=== PATIENT | female | born 1975 | race Caucasian/White ===

== ENCOUNTER 2024-04-22 11:00 | Emergency (ER) | payer OTHER, SELFPAY ==
[2024-04-22 11:23] VITALS: BP 136/96; PULSE 80; RESP 18; TEMP 36.3; O2SAT 100
--- NOTE | 2024-04-22 11:29 | ED.EXTPRO ---
HPI - Extremity Problem General Chief complaint: Extremity Problem,Nontraumatic Stated complaint: arm pain Source: patient Mode of arrival: ambulatory Limitations: no limitations History of Present Illness HPI Narrative: 48 y/o female presented for c/o right arm pain for one week. Pain started after rolling over in bed and using the arm to push herself up. Since then the pain has worsened. Rates pain 9/10. Pain is intermittent. Unable to describe any aggravating or alleviating factors. Says it will just start hurting and may be relieved in certain positions but not always. Endorses associated radiating pain to the hand with numbness or tingling. Denies weakness or decreased ROM. Takes naproxen and baclofen for chronic back pain, and has added tylenol without improvement. Related Data Home Medications Medication Instructions Recorded Confirmed baclofen 10 mg tablet 10 mg PO BID 04/22/24 04/22/24 etonogestrel 68 mg subdermal 1 implant subdermal ONCE 04/22/24 04/22/24 implant (Nexplanon) fluoxetine 20 mg capsule 20 mg PO DAILY 04/22/24 04/22/24 lisinopril 30 mg tablet 30 mg PO DAILY 04/22/24 04/22/24 naproxen 500 mg tablet 500 mg PO BID 04/22/24 04/22/24 omeprazole 40 mg capsule,delayed 40 mg PO DAILY 04/22/24 04/22/24 release tirzepatide 5 mg/0.5 mL 5 mg subcut WEEKLY 04/22/24 04/22/24 subcutaneous pen injector (Mounjaro) Allergies Allergy/AdvReac Type Severity Reaction Status Date / Time latex Allergy Mild RASH Verified 04/22/24 11:32 ERITHROMYCIN AdvReac Intermediate Nausea and Uncoded 04/22/24 11:32 Vomiting Review of Systems Review of Systems: CONSTITUTIONAL: Denies body aches, fever, chills CARDIOVASCULAR: Denies chest pain, palpitations, or edema. RESPIRATORY: Denies cough or dyspnea. SKIN: Denies rash, wounds. MUSCULOSKELETAL: Reports right arm pain NEUROLOGIC: Denies headache, or weakness. reports numbness, tingling All systems reviewed & are unremarkable except as noted in HPI and below PMFSH Past Medical History Medical History Diabetes HTN (hypertension) Comments At time of signature, I have reviewed and agree with nursing past medical, surgical, social and family history unless otherwise noted. Please see nursing chart for further information. There is no relevant family history pertinent to the presenting complaint Exam Narrative: GENERAL: Well-appearing CHEST: Speaks in full sentences. No respiratory distress. HEART: Regular rate and rhythm. Normal and equal peripheral pulses. EXTREMITIES: RUE has normal strength and sensation, normal range of motion at shoulder without pain without painful movement. Right posterior shoulder/deltoid tender with palpation. No swelling bruising or erythema. No open wounds, or obvious deformity; alignment normal, pulse palpable and equal bilaterally, skin warm, dry, pink. Capillary refill less than 3 seconds. SKIN: Warm, dry, no rash. NEURO: Alert and oriented x3. PSYCH: Normal mood and affect Course Course Emergency Course: Patient is aware of diagnosis, understands and agrees to treatment plan. Anticipatory guidance given. Patient agrees to follow-up as directed and is aware of reasons to seek care at the emergency department. Portions of this record may have been created with voice recognition software Level of Care: Express Care Visit Vital Signs Vital signs: Vital Signs Temperature 97.3 F L 04/22/24 11:23 Pulse Rate 80 04/22/24 11:23 Respiratory Rate 18 04/22/24 11:23 Blood Pressure 136/96 H 04/22/24 11:23 Pulse Oximetry 100 04/22/24 11:23 Oxygen Delivery Room Air 04/22/24 11:23 Temperature 97.3 F L 04/22/24 11:23 Pulse Rate 80 04/22/24 11:23 Respiratory Rate 18 04/22/24 11:23 Blood Pressure 136/96 H 04/22/24 11:23 Pulse Oximetry 100 04/22/24 11:23 Oxygen Delivery Room Air 04/22/24 11:23 Reviewed MDM - Extremity (Nontraumatic) MDM Narrative Medical decision making narrative: Discussed physical exam findings and reviewed Rx. Pt will not take baclofen while taking cyclobenzaprine. Declined imaging at this time, and plans to f/u with pcp for this. Advised supportive measures and signs/symptoms to go to the ER. Pt is appropriate for outpt treatment and f/u. Differential Diagnosis Differential diagnosis: Likely other (cervical strain, cervical radiculopathy, cervical spine fracture/dislocation/herniation Musculoskeletal injury, torticollis, cervical spondylosis, cervical stenosis, epidural abscess, osteomyelitis, disc herniation) Discharge Plan Discharge Clinical Impression: Pain in right arm Patient Disposition: Home, Self-Care Condition: Stable Instructions: Arm Pain (ED) Additional Instructions: Rest. Avoid pushing, pulling, lifting or anything that worsens the symptoms Tylenol 1000mg every 8 hours as needed You can alternate with the previously prescribed naproxen Take steroid as directed, with food Cyclobenzaprine (Flexeril) is a muscle relaxer. Take it as directed. It can cause drowsiness so do not drive or operate machinery until you know how it makes you feel. Do Not take the previously prescribed baclofen while taking this medication. Alternate ice/heat to the site. Lidocaine or salon pas pain patch or use pain cream like icy/hot or biofreeze. Follow up with your primary care provider as needed in 1 week Go to the ER for worsening symptoms or concerns Prescriptions: New cyclobenzaprine 10 mg tablet 10 mg PO TID PRN (Reason: muscle spasm) Qty: 10 0RF methylprednisolone [Medrol (Allen)] 4 mg tablets,dose pack See Rx Instructions .ROUTE .COMPLEX Qty: 21 0RF Rx Instructions: orally per package directions No Action omeprazole 40 mg capsule,delayed release(DR/EC) 40 mg PO DAILY lisinopril 30 mg tablet 30 mg PO DAILY fluoxetine 20 mg capsule 20 mg PO DAILY Mounjaro 5 mg/0.5 mL pen injector 5 mg SUBCUT WEEKLY baclofen 10 mg tablet 10 mg PO BID naproxen 500 mg tablet 500 mg PO BID Nexplanon 68 mg Implant 1 implant SUBDERMAL ONCE Rx Instructions: as a single dose Follow-up/Referrals: Bryn,OSWALDO Wolf [Primary Care Provider] -
== END 2024-04-22 11:52 | disposition home or self-care (01) ==
PROVIDERS: Emergency Provider Nurse Practitioner Family; PCP Physician Assistant
DX: M79.621 Pain in right upper arm (principal); E11.9 Type 2 diabetes mellitus without complications; I10 Essential (primary) hypertension
CPT/HCPCS: 99203; G0463

== ENCOUNTER 2024-05-02 11:40 | Emergency (ER) | payer OTHER, SELFPAY ==
--- NOTE | ~2024-05-02 | CT_ITS ---
EXAMINATION: CT brain wo con, CT facial & cervical spine wo DATE: 05/02/2024 12:24 INDICATION: Fall with head injury. TECHNIQUE: 1. Computed tomography (CT) of the head was performed without intravenous contrast. Sagittal and gina nal reconstructions were obtained. The dose-length product was 605.33 mGy-cm. 2. CT of the facial bones and cervical spine was performed without intravenous contrast. Sagittal and coronal reconstructions were obtained. The dose-length product was 637.13 mGy-cm. COMPARISON: None. FINDINGS: Head CT: Small anterior left frontal scalp hematoma. No calvarial fracture. No acute intracranial hemorrhage, acute infarction or abnormal extra axial fluid collection. Ventricles are normal and symmetric. No ma ss/mass effect. Maxillofacial CT: Negligible angulation of a nondisplaced fracture of the left and right nasal bones with mild soft tis sherine swelling at the bridge of the nose. No other maxillofacial fractures identified. Specifically the mandible, zygomatic arches, aaron of the orbits and nasal sinuses as well as the midline nasal septu m are all intact. Orbits are normal. Mastoid air cells and middle ear cavities are clear. Cervical spine CT: 6 degrees cervicothoracic dextrocurvature. Straightening of the normal cervical lordosis. Vertebral b kenneth heights are normal. Moderate disc height loss at C6-C7 and mild disc height loss at remaining cer vical levels. Multilevel mild cervical facet and uncovertebral osteoarthritis. Moderate facet osteoar thritis on the right at T2-T3 and bilaterally at T3-T4. Visualized apices of the lungs are clear. Cer vical soft tissues are unremarkable. IMPRESSION: 1. Nondisplaced bilateral nasal bone fractures. 2. Normal brain. No calvarial fracture or acute intracranial process. 3. Mild to moderate cervical spondylosis with no acute osseous abnormality. Reviewed, dictated and finalized at location A. [employer] IMPRESSION: 1. Nondisplaced bilateral nasal bone fractures. 2. Normal brain. No calvarial fracture or acute intracranial process. 3. Mild to moderate cervical spondylosis with no acute osseous abnormality.
--- NOTE | ~2024-05-02 | XR_ITS ---
XR hand LT min 3V Ordering provider: Randi Cavazos MD History: . fall TODAY PAIN LATERAL LT HAND . Comparison: None. FINDINGS: BONES: No acute fracture or dislocation. JOINT SPACES: Well maintained. SOFT TISSUES: Unremarkable. IMPRESSION: No acute osseous abnormality left hand. Reviewed, dictated and finalized at location A. [employer]
[2024-05-02 11:55] VITALS: BP 144/89; PULSE 78; RESP 16; TEMP 36.4; O2SAT 98
--- NOTE | 2024-05-02 14:05 | ED.FALL ---
HPI - Fall General Chief Complaint: Fall Stated Complaint: fall Time Seen by Provider: 05/02/24 12:57 48-year-old with a history of hypertension here with the complaints of fall. Patient states that she tripped and fell on concrete and hit her face. She denies LOC. No neck pain. Source: patient and family Mode of arrival: ambulatory Limitations: no limitations History of Present Illness complaint: fall Onset (ago): hour(s) (1) Fall from: standing Fall witnessed: yes, by family Place fall occurred: home Loss of consciousness: none Context: tripped/slipped Location of injury: face Related Data Home Medications ?Medication ?Instructions ?Recorded ?Confirmed ?Last Taken ?Type baclofen 10 mg tablet 10 mg PO BID 04/22/24 04/22/24 Unknown History etonogestrel 68 mg subdermal 1 implant subdermal ONCE 04/22/24 04/22/24 Unknown History implant (Nexplanon) fluoxetine 20 mg capsule 20 mg PO DAILY 04/22/24 04/22/24 Unknown History lisinopril 30 mg tablet 30 mg PO DAILY 04/22/24 04/22/24 Unknown History naproxen 500 mg tablet 500 mg PO BID 04/22/24 04/22/24 Unknown History omeprazole 40 mg capsule,delayed 40 mg PO DAILY 04/22/24 04/22/24 Unknown History release tirzepatide 5 mg/0.5 mL 5 mg subcut WEEKLY 04/22/24 04/22/24 Unknown History subcutaneous pen injector (Mounjaro) Allergies Allergy/AdvReac Type Severity Reaction Status Date / Time latex Allergy Mild RASH Verified 04/22/24 11:32 ERITHROMYCIN AdvReac Intermediate Nausea and Uncoded 04/22/24 11:32 Vomiting Review of Systems Review of Systems: All systems reviewed & are unremarkable except as noted in HPI and below Constitutional: Constitutional: Reports no additional constitutional complaints Eyes: Eyes: Reports no additional eye complaints ENT: Reports as per HPI Cardiovascular: Cardiovascular: Reports no additional cardiovascular complaints Respiratory: Respiratory: Reports no additional respiratory complaints Gastrointestinal: Gastrointestinal: Reports no additional gastrointestinal complaints Genitourinary: Genitourinary: Reports no additional female genitourinary complaints Musculoskeletal: Musculoskeletal: Reports no additional musculoskeletal complaints PMFSH Past Medical History Medical History HTN (hypertension) Diabetes Exam Narrative: GENERAL: Well-appearing, well-nourished, and in no acute distress. HEAD: Normocephalic, atraumatic. small hematoma on the left frontal area with abrasion, EYES: PERRLA and EOMI. ENT: Nares clear, no rhinorrhea or epistaxis. Mucous membranes moist.small abrasion on the bridge of the nose NECK: Supple. CHEST: Clear to auscultation. No respiratory distress. HEART: Regular rate and rhythm. No murmur heard. Normal peripheral pulses. EXTREMITIES: Normal range of motion. No edema. SKIN: Warm, dry, no rash. NEURO: No focal deficits. Alert and oriented x3. PSYCH: Normal mood and affect. Course Course Emergency Course: Notified patient about her x-ray and CT findings. Recommended her to use the nasal spray given here in the ER, follow-up with the ENT in the week . Vital Signs Vital signs: Vital Signs Temperature 36.4 C 05/02/24 11:55 Pulse Rate 78 05/02/24 11:55 Respiratory Rate 16 05/02/24 11:55 Blood Pressure 144/89 H 05/02/24 11:55 Pulse Oximetry 98 05/02/24 11:55 Temperature 36.4 C 05/02/24 11:55 Pulse Rate 78 05/02/24 11:55 Respiratory Rate 16 05/02/24 11:55 Blood Pressure 144/89 H 05/02/24 11:55 Pulse Oximetry 98 05/02/24 11:55 MDM - Fall Imaging Data Radiologist's impression: ITS Impressions Hand X-Ray 05/02/24 12:32 IMPRESSION: No acute osseous abnormality left hand. Head CT 05/02/24 12:32 IMPRESSION: 1. Nondisplaced bilateral nasal bone fractures. 2. Normal brain. No calvarial fracture or acute intracranial process. 3. Mild to moderate cervical spondylosis with no acute osseous abnormality. Head/Cervical Spine/Facial Bones CT 05/02/24 12:32 IMPRESSION: 1. Nondisplaced bilateral nasal bone fractures. 2. Normal brain. No calvarial fracture or acute intracranial process. 3. Mild to moderate cervical spondylosis with no acute osseous abnormality. Discharge Plan Discharge Clinical Impression: Minor head injury Qualifiers: Encounter type: initial encounter Qualified Code(s): S09.90XA - Unspecified injury of head, initial encounter Fracture closed, nasal bone Qualifiers: Encounter type: initial encounter Qualified Code(s): S02.2XXA - Fracture of nasal bones, initial encounter for closed fracture Patient Disposition: Home, Self-Care Condition: Stable Instructions: Nasal Fracture (ED), Head Injury (DC) Additional Instructions: Can take Tylenol or ibuprofen for pain Patient Language: Spanish Prescriptions: No Action omeprazole 40 mg capsule,delayed release(DR/EC) 40 mg PO DAILY lisinopril 30 mg tablet 30 mg PO DAILY fluoxetine 20 mg capsule 20 mg PO DAILY Mounjaro 5 mg/0.5 mL pen injector 5 mg SUBCUT WEEKLY baclofen 10 mg tablet 10 mg PO BID naproxen 500 mg tablet 500 mg PO BID Nexplanon 68 mg Implant 1 implant SUBDERMAL ONCE Rx Instructions: as a single dose cyclobenzaprine 10 mg tablet 10 mg PO TID PRN (Reason: muscle spasm) Qty: 10 0RF methylprednisolone [Medrol (Allen)] 4 mg tablets,dose pack See Rx Instructions .ROUTE .COMPLEX Qty: 21 0RF Rx Instructions: orally per package directions Follow-up/Referrals: UNKNOWN,DOCTOR [Primary Care Provider] - harsh solomon [Other] Time of Disposition: 14:22
[2024-05-02 14:51] VITALS: BP 132/88; PULSE 82; RESP 16; TEMP 36.6; O2SAT 98
== END 2024-05-02 14:54 | disposition home or self-care (01) ==
PROVIDERS: Emergency Provider Family Medicine
DX: S02.2XXA Fracture of nasal bones, initial encounter for closed fracture (principal); I10 Essential (primary) hypertension; E11.8 Type 2 diabetes mellitus with unspecified complications; Z79.85 Long-term (current) use of injectable non-insulin antidiabetic drugs; Z79.899 Other long term (current) drug therapy; M47.812 Spondylosis without myelopathy or radiculopathy, cervical region; W01.0XXA Fall on same level from slipping, tripping and stumbling without subsequent striking against object, initial encounter
CPT/HCPCS: 70450; 70486; 72125; 73130; 99284; A9270